=== PATIENT | female | born 1980 | race Caucasian/White ===

== ENCOUNTER 2021-01-22 12:34 | Emergency (ER) | payer MEDICAID ==
[~2021-01-22] VITALS: Ht 167.6 cm; Wt 72.7 kg
[~2021-01-22 12:34] MED LIST: HYDR-3972 PO; IBUP-1986 PO
[2021-01-22 12:44] VITALS: BP 120/74
[2021-01-22] MEDS ORDERED: BENZ-16 PO (13:27)
== END 2021-01-22 13:34 | disposition home or self-care (01) ==
LOC: ER 12:35
DX: J22 Unspecified acute lower respiratory infection (principal); R42 Dizziness and giddiness; Z79.899 Other long term (current) drug therapy
CPT/HCPCS: 99283

== ENCOUNTER 2021-05-14 11:44 | Emergency (ER) | payer MEDICAID ==
[~2021-05-14] VITALS: Ht 167.6 cm; Wt 81.8 kg
[2021-05-14] MEDS ORDERED: normal saline 1000ML IV soln IVB ONE (12:15)
--- NOTE | 2021-05-14 12:27 | NUR ---
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
--- NOTE | 2021-05-14 12:27 | NUR ---
NURSE REESE IS CALLING AIRCRAFT PAINTER APPRENTICE TO COME IN
[2021-05-14] MEDS ORDERED: ketorolac trometh. 30mg/ml inj. IV ONE (12:30)
[2021-05-14 12:32] LABS: CLARITY,URINE SLIGHTLY CLOUDY (Clear); COLOR,URINE STRAW (Yellow); GLUCOSE, URINE NEGATIVE (Neg); KETONES,URINE NEGATIVE (Neg); LEUKOCYTE ESTERASE ,URINE LARGE (Neg); NITRITES, URINE NEGATIVE (Neg); OCCULT BLOOD,URINE LARGE (Neg); PROTEIN,URINE 30 mg/dl (Neg); UROBILINOGEN,URINE 0.2 E.U/dL (0.2-1.0)
--- NOTE | 2021-05-14 12:33 | NUR ---
1ST LITER NS INFUSING W/O
[2021-05-14 12:34] LABS: UA COLLECTION TYPE CLN CATCH MIDSTREAM; URINE HCG NEGATIVE (NEG)
[2021-05-14 12:37] LABS: BASOPHILS # (AUTO) 0.1 X10'3 (0-0.2); BASOPHILS % (AUTO) 0.8 % (0-1); EOSINOPHILS # (AUTO) 0.1 X10'3 (0-0.9); EOSINOPHILS % (AUTO) 1.5 % (0-6); HEMATOCRIT 39.9 % (35.0-45.0); HEMOGLOBIN 13.5 g/dl (12.0-16.0); LYMPHOCYTES # (AUTO) 1.3 X10'3 (1.1-4.8); LYMPHOCYTES % (AUTO) 16.3 % (21-51); MEAN CORPUSCULAR HEMOGLOBIN 29.2 PG (27.0-31.0); MEAN CORPUSCULAR VOLUME 85.9 FL (78-98); MEAN PLATELET VOLUME 7.5 FL (7.4-10.4); MONOCYTES # (AUTO) 0.5 X10'3 (0-0.9); MONOCYTES % (AUTO) 5.9 % (2-12); NEUTROPHILS # (AUTO) 6.1 X10'3 (1.8-7.7); NEUTROPHILS % (AUTO) 75.5 % (42-75); PLATELET COUNT 287 X10'3 (140-440); RED BLOOD COUNT 4.64 X10'6 (4.20-5.60); RED CELL DISTRIBUTION WIDTH 13.2 % (11.5-14.5); WHITE BLOOD COUNT 8.1 X10'3 (4.5-11.0)
[2021-05-14 12:44] LABS: BACTERIA,URINE 2+ /HPF (Neg); MUCUS STRANDS FEW /LPF (Neg); SQUAMOUS EPITHELIAL CELL,UR FEW /LPF (FEW); WBC,URINE 20-30 /HPF (0-4)
[2021-05-14 12:48] LABS: ALANINE AMINOTRANSFERASE 28 U/L (12-78); ALBUMIN 4.4 G/DL (3.4-5.0); ALBUMIN/GLOBULIN RATIO 1.3 (1.1-1.5); ALKALINE PHOSPHATASE 47 IU/L (46-116); ANION GAP 10 (8-16); ASPARTATE AMINO TRANSFERASE 16 U/L (10-37); BILIRUBIN,TOTAL 0.5 MG/DL (0.1-1.0); BLOOD UREA NITROGEN 13 MG/DL (7-18); BUN/CREATININE RATIO 15.5 (6.6-38.0); CALCIUM 8.8 MG/DL (8.5-10.1); CHLORIDE 105 MMOL/L (99-107); CREATININE 0.84 MG/DL (0.40-0.90); GLUCOSE 94 MG/DL (70-104); SODIUM 140 MMOL/L (135-145); TOTAL CARBON DIOXIDE 25.5 MMOL/L (24-32); TOTAL PROTEIN 7.9 G/DL (6.4-8.2); eGFR 75 ML/MIN
[2021-05-14] MEDS ORDERED: HYDR-3965 PO (12:55)
[2021-05-14] MEDS ORDERED: NAPR-56 PO (12:55)
[2021-05-14] MEDS ORDERED: CEPH250T PO (12:55)
[2021-05-14] MEDS ORDERED: FLO0.4C PO (12:55)
[2021-05-14] MEDS ORDERED: CefTRIAXone 2gm/D5W 50ml BAG 50 ML IV ONE (12:55)
[2021-05-14] MEDS ORDERED: FLUC150T22 PO (13:01)
--- NOTE | 2021-05-14 13:16 | NUR ---
2ND LITER OF NS INFUSING W/O
[2021-05-14 14:48] VITALS: BP 103/63
== END 2021-05-14 14:49 | disposition home or self-care (01) ==
LOC: ER 11:45
DX: N39.0 Urinary tract infection, site not specified (principal); N23 Unspecified renal colic; Z79.2 Long term (current) use of antibiotics; Z79.899 Other long term (current) drug therapy
CPT/HCPCS: 36415; 76770; 80053; 81001; 81025; 85025; 87077; 87088; 87186; 96361; 96365; 96375; 99284; J0696; J1885; J7030